=== PATIENT | male | born 1975 | race Caucasian/White ===

== ENCOUNTER 2016-12-27 17:14 | Emergency (ER) | payer OTHER ==
--- NOTE | 2016-12-27 18:25 | ED ORDER SUMMARY ---
..... Patient: KYMBERLY NIEVES OrderSheet [facility] VisitID: [id number] [address] [place] [address] 41y, M Registration Date/Time: 12/27/2016 ORDER SHEET Weight: 97.5 kg (stated) Allergies: None GENERAL ORDERS: US Venous Right Urgent (17:50 12/27/2016 EKoroiva P.A.-C) (18:11 JBoardley R.N.) MEDICATION ORDERS: Keflex PO 500 mg (NOW) (18:24 12/27/2016 Isabella P.A.-C) (Ack 18:24 JBoardley R.N.) (18:32 JBoardley R.N.) IV FLUIDS: IV Saline Lock (17:47 12/27/2016 JBoardley R.N. per protocol) (17:48 JBoardley R.N.) ORDER SHEET NOTES: [Electronically signed by Caleb Garcia R.N. (18:35 12/27/2016)] [Electronically signed by Char CarringtonAMega-Lenka (19:06 12/27/2016)] [Electronically locked/signed by Caleb Garcia R.N. (18:35 12/27/2016)]
--- NOTE | 2016-12-27 18:25 | ED CLINICAL REPORT ---
Clinical Report - Physicians/Mid Levels [facility] [address] [place] [address] 12/27/2016 17:15 Patient: KYMBERLY NIEVES Time Seen: 18:04 Dec 27 2016. Arrived- By private vehicle. Historian- patient. HISTORY OF PRESENT ILLNESS Chief Complaint: Injury to right leg. The injury happened 2 - 3 days. This was not caused by a direct blow or crush injury. (patient status post arthroscopic surgery on his right hip December 09, for labrum tear, reports some swelling of his right calf and pain to his right calf over the last 2 days. Patient denies any history of DVT or PE. Denies any shortness of breath. Reports maybe some discoloration of his right lower extremity. Denies any fevers. Patient reports some increase in change in the way he has been rehabbing. Pt on crutches. Denies h/o dvt.). REVIEW OF SYSTEMS The patient complains of pain on weight bearing. No skin laceration. All systems otherwise negative, except as recorded above. PAST HISTORY The patient has not had a prior injury to the same area. SOCIAL HISTORY Alcohol use. ADDITIONAL NOTES The nursing notes have been reviewed. PHYSICAL EXAM Vital Signs: 12/27/2016 17:32 BP: 130/95. HR: 63. RR: 16. O2 saturation: 98%. Temp: 98 F. Pain level now: 2/10. Appearance: Alert. Head: Head atraumatic. CVS: Normal heart rate and rhythm. Heart sounds normal. Respiratory: No respiratory distress. Breath sounds normal. Abdomen: No visible injury. Soft. Skin: Skin intact. Extremities: Right hip. (anterior/ two small incision sites c/d/i). Right thigh. No tenderness or laceration. Right knee. No tenderness or swelling. Right leg. (mild posterior calf tenderness, pink distal erythema, no warmth). (38 cm b/l le 2 inches below patella). Gait: (ambulates with crutches). Neuro, Vascular and Tendons: Vascular status intact. Motor intact. No functional tendon deficit. Neuro: Oriented X 3. LABS, X-RAYS, AND EKG Note - Tests: (US: venous: IMPRESSION: 1. Negative venous ultrasound of the right lower extremity. Electronically Final signed by:Kailash Valente MD 12/27/2016 6:57:47 PM). PROGRESS AND PROCEDURES Course of Care: patient with increase of activity recently, is also pink erythema, differential after her negative ultrasound, does include cellulitis, muscle or extremity strain. Pt with no sob, no h/o dvt. Patient is stable. Patient/family counseled. Disposition: Discharged. CLINICAL IMPRESSION Muscle strain of the left lower leg. Cellulitis of the right lower leg. INSTRUCTIONS Apply ice. Elevate affected areas above chest level. You may walk and bear weight as tolerated (as per instructions of your ORTHO). (ice nsaid: motrin/ibuprofen or naproxen /aleve follow up in 7-10 days especially if pain persist). Prescription Medications: Cephalexin 500 mg: take 1 capsule orally every 8 hours for 10 days. No refill. OTC Medications: Take ibuprofen (Advil, Nuprin, etc.) and naproxen (Aleve) according to label instructions. Available over the counter. Follow-up: Follow up with your doctor in seven days. (Electronically signed by Char Carrington P.A.-C 12/27/2016 19:06)
--- NOTE | 2016-12-27 18:25 | ED NURSING NOTES ---
Clinical Report - Nurses [facility] [address] [place] [address] 12/27/2016 17:15 Patient: KYMBERLY NIEVES TRIAGE Triage time 17:32. Acuity: LEVEL 3. Chief Complaint: RIGHT LOWER EXTREMITY PAIN, SWELLING and REDNESS. --17:39 Rachel Oglesby R.N. 17:32 12/27/16. BP: 130/95. HR: 63. RR: 16. O2 saturation: 98%. Temp: 98 F. Pain level now: 210. Additional comments: 2/10 while sitting, lower right leg. . --17:39 Rachel Oglesby R.N. Triage time 17:42 Dec 27 2016. Acuity: LEVEL 3. Chief Complaint: RIGHT LOWER EXTREMITY PAIN, SWELLING and REDNESS. 17:43 12/27/16. 17:43 12/27/16. Alert. No acute distress. SEPSIS SCREEN: Sepsis Screen. Negative (no infection suspected/documented). FARA COMA SCORE: Fara Coma Scale: 15- eyes open spontaneously (4); best verbal response- oriented x 4 (5); best motor response- obeys commands (6). --17:47 Caleb Garcia R.N. Weight: 97.5 kg stated. Height/Length: 74 inches Per Patient. BMI: 27.6. --17:39 Rachel Oglesby R.N. Medications None. --17:38 Rachel Oglesby R.N. Medication/allergy information source: the patient. --17:47 Caleb Garcia R.N. Allergies None. --17:38 Rachel Oglesby R.N. History Arrived by private vehicle. Historian: patient. Accompanied by family. This occurred (2-3 days ago). ( Pt had orthoscopic surgery on r hip December 09 at [facility]. 2-3 days ago r calf area started to become tight and painful, now appears more red and swollen. Clinic advised pt to come to ED. Surgeon is Dr. Rajput.). PAST MEDICAL HX: Negative. Tetanus status: unknown. SOCIAL HX: Occasional alcohol use. FALL RISK ASSESSMENT: Fall risk assessment completed. No fall risk identified. NUTRITIONAL RISK ASSESSMENT: The nutritional risk assessment revealed no deficiencies. FUNCTIONAL ASSESSMENT: Functional assessment: no impairments noted. LEARNING NEEDS ASSESSMENT: The learning needs assessment revealed no barriers. SKIN INTEGRITY ASSESSMENT: Skin integrity risk assessment completed. No skin integrity risk identified. --17:39 Rachel Oglesby R.N. Arrived by private vehicle. Historian: patient. Accompanied by family. Primary physician ([facility] 17:43 12/27/16. ( Post Surgery on Right Hip on DECEMBER 25). PAST MEDICAL HX: Tetanus status: up-to-date. Immunizations: up-to-date. ( Mother history of PE). SOCIAL HX: Never smoker. No alcohol use or drug use. No infectious disease exposure. ABUSE ASSESSMENT: No report of abuse. FALL RISK ASSESSMENT: Fall risk assessment completed. No fall risk identified. NUTRITIONAL RISK ASSESSMENT: The nutritional risk assessment revealed no deficiencies. FUNCTIONAL ASSESSMENT: Functional assessment: no impairments noted. LEARNING NEEDS ASSESSMENT: The learning needs assessment revealed no barriers. SKIN INTEGRITY ASSESSMENT: Skin integrity risk assessment completed. No skin integrity risk identified. --17:47 Caleb Garcia R.N. PROBLEMS: no known problems. ADDITIONAL SURGERIES: Right Hip. --17:45 Caleb Garcia R.N. Assessment The patient states feels the same. --17:39 Rachel Oglesby R.N. 17:43 12/27/16. --17:47 Caleb Garcia R.N. Interventions ID band on patient. --17:39 Rachel Oglesby R.N. 17:43 12/27/16. 17:43 12/27/16. ID and allergy band on patient. To treatment room. --17:47 Caleb Garcia R.N. PHYSICAL ASSESSMENT 17:46 12/27/16. (crutches). GENERAL / NEURO / PSYCH: Oriented X 4. Alert. Appears in no acute distress. EXTREMITIES: 1+ edema of the right lower extremity involving the foot. Right pedal. Extremity pulses are within normal limits. Neuro-vascular status intact to the extremity. Right ankle: tenderness and erythema. Right foot: tenderness and erythema. SKIN: Skin is warm and dry. --17:46 Caleb Garcia R.N. NURSING PROGRESS NOTES 17:46 12/27/16. The plan of care for this patient has been created. Cold pack applied. Extremity elevated. Patient gowned. Reassurance given. Two patient identifiers checked. Call light placed in reach. Side rails up x 2. Bed placed in lowest position. Brakes of bed on. --17:47 Caleb Garcia R.N. 17:47 12/27/16. Patient ready for evaluation- chart flagged and notification provided. --17:47 Caleb Garcia R.N. 17:48 12/27/2016 Site #1 started via IV in the left antecubital space with an 18g angiocath, with aseptic technique and good blood return; one attempt. Blood drawn: rainbow set. Labeled in the presence of the patient and sent to the lab. Saline lock flushed with 10 mL saline. --17:48 Caleb Garcia R.N. 18:32 12/27/2016 Keflex (Cephalexin) PO 500 mg given. Allergies verified and confirmed 5 rights. --18:32 Caleb Garcia R.N. DISPOSITION / DISCHARGE 18:32 12/27/2016 Site #1 removed upon discharge. Catheter intact. --18:32 Caleb Garcia R.N. 18:33 12/27/16. Condition at departure: improved. The goals identified in the patient's plan of care were met. No learning barriers present. Discharge instructions provided and reviewed with the patient. Reviewed warnings. Reviewed medication(s). Treatments reviewed. Patient verbalized understanding. Written instructions provided in Upper Sorbian. The patient was discharged by the physician housekeeper/laundry assistant. He was discharged home and accompanied by family. He left the Emergency Department on crutches and via private vehicle. Family member driving. FALL RISK ASSESSMENT: Fall risk assessment completed. No fall risk identified. --18:33 Caleb Gracia R.N. 18:32 12/27/16. BP: 124/72. HR: 81. RR: 14. O2 saturation: 99% on room air. Temp: 98.1 F (oral). --18:33 Claeb Garcia R.N. 18:33 12/27/16. Departure time: 18:33 Dec 27 2016. --18:33 Caleb Garcia R.N. Locked/Released at 12/27/2016 18:36 by Caleb Garcia R.N.
--- NOTE | 2016-12-27 18:25 | ED ORDER SUMMARY ---
..... Patient: KYMBERLY NIEVES OrderSheet [facility] VisitID: [id number] [address] [place] [address] 41y, M Registration Date/Time: 12/27/2016 ORDER SHEET Weight: 97.5 kg (stated) Allergies: None GENERAL ORDERS: US Venous Right Urgent (17:50 12/27/2016 EKoroiva P.A.-C) (18:11 JBoardley R.N.) MEDICATION ORDERS: Keflex PO 500 mg (NOW) (18:24 12/27/2016 Isabella P.A.-C) (Ack 18:24 JBoardley R.N.) (18:32 JBoardley R.N.) IV FLUIDS: IV Saline Lock (17:47 12/27/2016 JBoardley R.N. per protocol) (17:48 JBoardley R.N.) ORDER SHEET NOTES: [Electronically signed by Caleb Garcia R.N. (18:35 12/27/2016)] [Electronically signed by Char CarringtonAMega-Lenka (19:06 12/27/2016)] [Electronically locked/signed by Caleb Garcia R.N. (18:35 12/27/2016)]
--- NOTE | 2016-12-27 18:58 | DIAGNOSTIC IMAGING REPORT ---
PROCEDURE: US VENOUS - RIGHT EXT INDICATION: SWELLING TECHNIQUE: Duplex sonography of the deep venous system in the right lower extremity was performed. Compression and augmentation techniques were used. COMPARISON: None. FINDINGS: Normal compression of the greater saphenous, common femoral, superficial femoral, popliteal, peroneal, and posterior tibial veins. Normal augmentation. There is no evidence of superficial or deep venous thrombosis. IMPRESSION: 1. Negative venous ultrasound of the right lower extremity.
--- NOTE | 2016-12-27 19:06 | ED DISCHARGE INSTRUCTIONS ---
Patient: KYMBERLY NIEVES General Instructions [facility] VisitID: [id number] [place] [address] 41y, M Registration Date/Time: 12/27/2016 Muscle strain of the left lower leg. Cellulitis of the right lower leg. INSTRUCTIONS Apply ice. Elevate affected areas above chest level. You may walk and bear weight as tolerated (as per instructions of your ORTHO). (ice nsaid: motrin/ibuprofen or naproxen /aleve follow up in 7-10 days especially if pain persist). Prescription Medications: Cephalexin 500 mg: take 1 capsule orally every 8 hours for 10 days. No refill. OTC Medications: Take ibuprofen (Advil, Nuprin, etc.) and naproxen (Aleve) according to label instructions. Available over the counter. Follow-up: Follow up with your doctor in seven days. ADDITIONAL INFORMATION Muscle Strain,Extremity A MUSCLE STRAIN is a stretching and tearing of muscle fibers. This causes pain, especially with motion of that muscle. There may also be some swelling and bruising. Home Care: 1) Keep the injured area raised to reduce pain and swelling. This is especially important during the first 48 hours. 2) Make an ice pack (ice cubes in a plastic bag, wrapped in a towel) and apply for 20 minutes every 1-2 hours the first day. You should continue with ice packs 3-4 times a day for the second and third days. Unless otherwise instructed, on the fourth day you may begin hot soaks or hot packs (small towel soaked in hot water) 3-4 times a day while you gently exercise the involved area. 3) You may use acetaminophen (Tylenol) or ibuprofen (Motrin, Advil) to control pain, unless another medicine was prescribed. [ NOTE : If you have chronic liver or kidney disease or ever had a stomach ulcer or GI bleeding, talk with your doctor before using these medicines.] 4) For LEG STRAINS: If CRUTCHES have been recommended, do not bear full weight on the injured leg until you can do so without pain. You may return to sports when you are able to hop and run on the injured leg without pain. Follow Up with your doctor or this facility if you are not improving within the next five days. Get Prompt Medical Attention if any of the following occur: -- Fingers or toes become swollen, cold, blue, numb or tingly -- Pain or swelling increases Cellulitis You have an infection of the skin known as cellulitis. This usually starts with a scrape, cut, insect bite, blister or other opening in the skin which becomes infected. This is a serious condition. It must be watched closely to be sure the infection is not spreading. With antibiotic treatment, the size of the red area will gradually shrink in size until the skin returns to normal. This will take 7-10 days. The red area should never increase in size once the antibiotic medicine has been started. Occasionally, an infection will be resistant to one antibiotic and another one will have to be used. Home Care: 1) Limit the use of the affected part, since excess movement can cause the infection to spread. 2) If the infection is on your leg, walk as little as possible during the first few days of the treatment. Keep your leg elevated while sitting. This will reduce swelling. 3) Take all of the antibiotic medicine exactly as directed until it is gone. Be careful not to miss any doses, especially during the first seven days. Follow Up with your doctor or this facility as directed. Check the infected area daily for the warning signs listed below. Get Prompt Medical Attention if any of the following occur: -- Spreading area of redness -- Increasing swelling or pain -- Appearance of pus or drainage -- Fever over 100.4 F (38.0 C) oral, or over 101.4 F (38.6 C) rectal, after two days on antibiotics Cephalexin Monohydrate Oral tablet What is this medicine? CEPHALEXIN (sef a LUZ ELENA in) is a cephalosporin antibiotic. It is used to treat certain kinds of bacterial infections It will not work for colds, flu, or other viral infections. How should I use this medicine? Take this medicine by mouth with a full glass of water. Follow the directions on the prescription label. This medicine can be taken with or without food. Take your medicine at regular intervals. Do not take your medicine more often than directed. Take all of your medicine as directed even if you think you are better. Do not skip doses or stop your medicine early. Talk to your linseed oil boiler regarding the use of this medicine in children. While this drug may be prescribed for selected conditions, precautions do apply. What side effects may I notice from receiving this medicine? Side effects that you should report to your doctor or health respiratory care instructor as soon as possible: allergic reactions like skin rash, itching or hives, swelling of the face, lips, or tongue breathing problems pain or trouble passing urine redness, blistering, peeling or loosening of the skin, including inside the mouth severe or watery diarrhea unusually weak or tired yellowing of the eyes, skin Side effects that usually do not require medical attention (report to your doctor or health respiratory care instructor if they continue or are bothersome): gas or heartburn genital or anal irritation headache joint or muscle pain nausea, vomiting What may interact with this medicine? probenecid some other antibiotics What if I miss a dose? If you miss a dose, take it as soon as you can. If it is almost time for your next dose, take only that dose. Do not take double or extra doses. There should be at least 4 to 6 hours between doses. Where should I keep my medicine? Keep out of the reach of children. Store at room temperature between 59 and 86 degrees F (15 and 30 degrees C). Throw away any unused medicine after the expiration date. What should I tell my health care provider before I take this medicine? They need to know if you have any of these conditions: kidney disease stomach or intestine problems, especially colitis an unusual or allergic reaction to cephalexin, other cephalosporins, penicillins, other antibiotics, medicines, foods, dyes or preservatives or trying to get breast-feeding What should I watch for while using this medicine? Tell your doctor or health respiratory care instructor if your symptoms do not begin to improve in a few days. Do not treat diarrhea with over the counter products. Contact your doctor if you have diarrhea that lasts more than 2 days or if it is severe and watery. If you have diabetes, you may get a false-positive result for sugar in your urine. Check with your doctor or health respiratory care instructor. You have been given the following additional information: Muscle Strain, Extremity Cellulitis Cephalexin Monohydrate Oral tablet You may walk and bear weight as tolerated (as per instructions of your ORTHO). (Electronically signed by Char Carrington P.A.-C 12/27/2016 19:06)
--- NOTE | 2016-12-27 19:06 | ED DISCHARGE INSTRUCTIONS ---
Patient: KYMBERLY NIEVES General Instructions [facility] VisitID: [id number] [place] [address] 41y, M Registration Date/Time: 12/27/2016 Muscle strain of the left lower leg. Cellulitis of the right lower leg. INSTRUCTIONS Apply ice. Elevate affected areas above chest level. You may walk and bear weight as tolerated (as per instructions of your ORTHO). (ice nsaid: motrin/ibuprofen or naproxen /aleve follow up in 7-10 days especially if pain persist). Prescription Medications: Cephalexin 500 mg: take 1 capsule orally every 8 hours for 10 days. No refill. OTC Medications: Take ibuprofen (Advil, Nuprin, etc.) and naproxen (Aleve) according to label instructions. Available over the counter. Follow-up: Follow up with your doctor in seven days. ADDITIONAL INFORMATION Muscle Strain,Extremity A MUSCLE STRAIN is a stretching and tearing of muscle fibers. This causes pain, especially with motion of that muscle. There may also be some swelling and bruising. Home Care: 1) Keep the injured area raised to reduce pain and swelling. This is especially important during the first 48 hours. 2) Make an ice pack (ice cubes in a plastic bag, wrapped in a towel) and apply for 20 minutes every 1-2 hours the first day. You should continue with ice packs 3-4 times a day for the second and third days. Unless otherwise instructed, on the fourth day you may begin hot soaks or hot packs (small towel soaked in hot water) 3-4 times a day while you gently exercise the involved area. 3) You may use acetaminophen (Tylenol) or ibuprofen (Motrin, Advil) to control pain, unless another medicine was prescribed. [ NOTE : If you have chronic liver or kidney disease or ever had a stomach ulcer or GI bleeding, talk with your doctor before using these medicines.] 4) For LEG STRAINS: If CRUTCHES have been recommended, do not bear full weight on the injured leg until you can do so without pain. You may return to sports when you are able to hop and run on the injured leg without pain. Follow Up with your doctor or this facility if you are not improving within the next five days. Get Prompt Medical Attention if any of the following occur: -- Fingers or toes become swollen, cold, blue, numb or tingly -- Pain or swelling increases Cellulitis You have an infection of the skin known as cellulitis. This usually starts with a scrape, cut, insect bite, blister or other opening in the skin which becomes infected. This is a serious condition. It must be watched closely to be sure the infection is not spreading. With antibiotic treatment, the size of the red area will gradually shrink in size until the skin returns to normal. This will take 7-10 days. The red area should never increase in size once the antibiotic medicine has been started. Occasionally, an infection will be resistant to one antibiotic and another one will have to be used. Home Care: 1) Limit the use of the affected part, since excess movement can cause the infection to spread. 2) If the infection is on your leg, walk as little as possible during the first few days of the treatment. Keep your leg elevated while sitting. This will reduce swelling. 3) Take all of the antibiotic medicine exactly as directed until it is gone. Be careful not to miss any doses, especially during the first seven days. Follow Up with your doctor or this facility as directed. Check the infected area daily for the warning signs listed below. Get Prompt Medical Attention if any of the following occur: -- Spreading area of redness -- Increasing swelling or pain -- Appearance of pus or drainage -- Fever over 100.4 F (38.0 C) oral, or over 101.4 F (38.6 C) rectal, after two days on antibiotics Cephalexin Monohydrate Oral tablet What is this medicine? CEPHALEXIN (sef a LUZ ELENA in) is a cephalosporin antibiotic. It is used to treat certain kinds of bacterial infections It will not work for colds, flu, or other viral infections. How should I use this medicine? Take this medicine by mouth with a full glass of water. Follow the directions on the prescription label. This medicine can be taken with or without food. Take your medicine at regular intervals. Do not take your medicine more often than directed. Take all of your medicine as directed even if you think you are better. Do not skip doses or stop your medicine early. Talk to your knocker off regarding the use of this medicine in children. While this drug may be prescribed for selected conditions, precautions do apply. What side effects may I notice from receiving this medicine? Side effects that you should report to your doctor or health senior care specialist as soon as possible: allergic reactions like skin rash, itching or hives, swelling of the face, lips, or tongue breathing problems pain or trouble passing urine redness, blistering, peeling or loosening of the skin, including inside the mouth severe or watery diarrhea unusually weak or tired yellowing of the eyes, skin Side effects that usually do not require medical attention (report to your doctor or health senior care specialist if they continue or are bothersome): gas or heartburn genital or anal irritation headache joint or muscle pain nausea, vomiting What may interact with this medicine? probenecid some other antibiotics What if I miss a dose? If you miss a dose, take it as soon as you can. If it is almost time for your next dose, take only that dose. Do not take double or extra doses. There should be at least 4 to 6 hours between doses. Where should I keep my medicine? Keep out of the reach of children. Store at room temperature between 59 and 86 degrees F (15 and 30 degrees C). Throw away any unused medicine after the expiration date. What should I tell my health care provider before I take this medicine? They need to know if you have any of these conditions: kidney disease stomach or intestine problems, especially colitis an unusual or allergic reaction to cephalexin, other cephalosporins, penicillins, other antibiotics, medicines, foods, dyes or preservatives or trying to get breast-feeding What should I watch for while using this medicine? Tell your doctor or health senior care specialist if your symptoms do not begin to improve in a few days. Do not treat diarrhea with over the counter products. Contact your doctor if you have diarrhea that lasts more than 2 days or if it is severe and watery. If you have diabetes, you may get a false-positive result for sugar in your urine. Check with your doctor or health senior care specialist. You have been given the following additional information: Muscle Strain, Extremity Cellulitis Cephalexin Monohydrate Oral tablet You may walk and bear weight as tolerated (as per instructions of your ORTHO). (Electronically signed by Char Carrington P.A.-C 12/27/2016 19:06)
--- NOTE | 2016-12-27 19:06 | ED MED RECONCILIATION SUMMARY ---
Patient: KYMBERLY NIEVES Medication Reconciliation Report [facility] VisitID: [id number] [address] [place] [address] 41y, M Registration Date/Time: 12/27/2016 Weight: 97.5 kg Height/Length: 74 in. BMI: 27.6 ALLERGIES: None The patient's Home Medications are listed below: NONE. The source(s) of the original Home Medication information: patient The following Medications were given to the patient in the Emergency Department: Keflex [PO] PO 500 mg, administered: 12/27/2016 6:32:00 PM The following Medications were prescribed to the patient: Take ibuprofen (Advil, Nuprin, etc.) and naproxen (Aleve) according to label instructions. Available over the counter. -- Char Carrington, P.A.-C Cephalexin 500 mg: take 1 capsule orally every 8 hours for 10 days. No refill. -- Char Carrington, P.A.-C
--- NOTE | 2016-12-27 19:06 | ED MED RECONCILIATION SUMMARY ---
Patient: KYMBERLY NIEVES Medication Reconciliation Report [facility] VisitID: [id number] [address] [place] [address] 41y, M Registration Date/Time: 12/27/2016 Weight: 97.5 kg Height/Length: 74 in. BMI: 27.6 ALLERGIES: None The patient's Home Medications are listed below: NONE. The source(s) of the original Home Medication information: patient The following Medications were given to the patient in the Emergency Department: Keflex [PO] PO 500 mg, administered: 12/27/2016 6:32:00 PM The following Medications were prescribed to the patient: Take ibuprofen (Advil, Nuprin, etc.) and naproxen (Aleve) according to label instructions. Available over the counter. -- Char Carrington, P.A.-C Cephalexin 500 mg: take 1 capsule orally every 8 hours for 10 days. No refill. -- Char Carrington, P.A.-C
--- NOTE | 2016-12-27 19:06 | ED MAR SUMMARY ---
..... Medication Administration Record Located Within [facility] [address] [place] [address] Patient: KYMBERLY NIEVES Visit ID: [id number] 41y, M Weight: 97.5 kg Height/Length: 74 in BMI: 27.6 ALLERGIES: None Given 18:32 12/27/2016 Caleb Garcia R.N. Medication Administered: KEFLEX [PO] (CEPHALEXIN), Dose: 500 mg PO. Medication Ordered: Keflex PO 500 mg (NOW).
--- NOTE | 2016-12-27 19:06 | ED MAR SUMMARY ---
..... Medication Administration Record [facility] [address] [place] [address] Patient: KYMBERLY NIEVES Visit ID: [id number] 41y, M Weight: 97.5 kg Height/Length: 74 in BMI: 27.6 ALLERGIES: None Given 18:32 12/27/2016 Caleb Garcia R.N. Medication Administered: KEFLEX [PO] (CEPHALEXIN), Dose: 500 mg PO. Medication Ordered: Keflex PO 500 mg (NOW).
== END 2016-12-27 18:33 | disposition home or self-care (01) ==
LOC: ED SRH 17:14
DX: S86.912A Strain of unspecified muscle(s) and tendon(s) at lower leg level, left leg, initial encounter (principal); L03.115 Cellulitis of right lower limb; X58.XXXA Exposure to other specified factors, initial encounter; Y93.9 Activity, unspecified; Y99.9 Unspecified external cause status; Y92.9 Unspecified place or not applicable